=== PATIENT | female | born 1990 | race American Indian/Alaskan Native ===

== ENCOUNTER 2020-12-28 12:12 | Emergency (ER) | payer SELFPAY ==
[2020-12-28 13:40] VITALS: BP 152/115
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
== END 2020-12-28 16:18 | disposition home or self-care (01) ==
LOC: ED 12:12
DX: S29.9XXA Unspecified injury of thorax, initial encounter (principal); Z79.899 Other long term (current) drug therapy; X50.1XXA Overexertion from prolonged static or awkward postures, initial encounter; Y93.89 Activity, other specified; Y92.89 Other specified places as the place of occurrence of the external cause; Y99.8 Other external cause status
CPT/HCPCS: 71046; 99283